=== PATIENT | male | born 1960 | race Hispanic/Latino ===

== ENCOUNTER 2016-11-01 07:48 | Emergency (ER) | payer MEDICARE, MEDICAID ==
[~2016-11-01] VITALS: Ht 152.4 cm; Wt 75.0 kg
[~2016-11-01 07:48] MED LIST: BACTRIM DS1 TAB PO; CIPROFLOXACN500 MG PO; DOXYCYCL HYC100 MG PO; LORTAB 7.5 OR; LORTAB 7.5 PO; NO; NO HOME MEDS; PREVACID30 M2 PO; THIAMINE HCL100 MG OR; ULTRAM50 M1 PO; ULTRAM50 MG OR; ZYPREXA OR; [UNRECOGNIZED DRUG - OTHER] EX
[2016-11-01 09:05] LABS: HEMATOCRIT 39.4 % (39.0-50.0); HEMOGLOBIN 13.4 g/dl (14.0-18.0); MEAN CELL VOLUME 100.3 fL CALC (80.0-100.0); MEAN CORPUSCULAR HGB 34.1 pG CALC (26.0-32.0); NEUT# 9.62 thou/uL (1.82-7.42); RED BLOOD COUNT 3.93 mill/uL (4.70-6.10); RED CELL DISTRI WIDTH 13.2 % (11.5-15.5)
[2016-11-01 09:32] LABS: ALBUMIN 3.6 g/dL (3.2-5.0); ALKALINE PHOSPHATASE 77 u/l (38-126); ANION GAP 16 (6-22 (CALC)); BUN 10 mg/dL (9-20); BUN/CREATININE RATIO 12 (12-20 (CALC)); CALCIUM 8.6 mg/dL (8.4-10.2); CARBON DIOXIDE 21 mmol/l (22-30); CHLORIDE 113 mmol/l (95-108); CREATININE 0.9 mg/dL (0.7-1.3); GFR > 60 ML/MIN (>=60 (CALC)); GFR FOR AFR.AMER. > 60 ML/MIN (>=60 (CALC)); GLUCOSE 85 mg/dL (75-110); POTASSIUM 3.7 mmol/l (3.5-5.1); SGOT/AST 208 u/l (17-59); SGPT/ALT 141 u/l (21-72); SODIUM 146 mmol/l (137-146); TOTAL PROTEIN 7.2 g/dL (6.3-8.2)
[2016-11-01 11:41] LABS: ETHYL ALCOHOL 374 mg/dl (0-30)
[2016-11-01 12:12] LABS: BARBITURATES NEGATIVE (NEGATIVE); COCAINE NEGATIVE (NEGATIVE); METHADONE NEGATIVE (NEGATIVE); OXCYCODONE NEGATIVE (NEGATIVE); TETRAHYDROCANNABIONOL NEGATIVE (NEGATIVE); TRICYLIC ANTIDEPRESSANTS NEGATIVE (NEGATIVE)
[2016-11-01 18:45] VITALS: BP 110/60
== END 2016-11-01 15:00 ==
LOC: ED 07:48
PROVIDERS: Emergency Medicine
PROC: 0HQFXZZ Repair Right Hand Skin, External Approach (ICD-10-PCS; principal; 2016-11-01)
DX: S06.0X9A Concussion with loss of consciousness of unspecified duration, initial encounter (principal); S61.411A Laceration without foreign body of right hand, initial encounter; S00.83XA Contusion of other part of head, initial encounter; S20.212A Contusion of left front wall of thorax, initial encounter; S30.1XXA Contusion of abdominal wall, initial encounter; S00.03XA Contusion of scalp, initial encounter; F31.9 Bipolar disorder, unspecified; F20.9 Schizophrenia, unspecified; B19.20 Unspecified viral hepatitis C without hepatic coma; J44.9 Chronic obstructive pulmonary disease, unspecified; F17.210 Nicotine dependence, cigarettes, uncomplicated; Y09 Assault by unspecified means; Y92.410 Unspecified street and highway as the place of occurrence of the external cause
CPT/HCPCS: J2060; Q9967

== ENCOUNTER 2017-11-08 21:05 | Emergency (ER) | payer MEDICARE, MEDICAID ==
[~2017-11-08] VITALS: Ht 177.8 cm; Wt 77.3 kg
[2017-11-08] MEDS ORDERED: BACTRIM DS1 TAB PO (22:12)
[2017-11-08 22:20] VITALS: BP 111/66
== END 2017-11-08 22:25 | disposition home or self-care (01) ==
LOC: ED 21:05
PROC: 0HQNXZZ Repair Left Foot Skin, External Approach (ICD-10-PCS; principal; 2017-11-08)
DX: S91.112A Laceration without foreign body of left great toe without damage to nail, initial encounter (principal); S81.012A Laceration without foreign body, left knee, initial encounter; W20.8XXA Other cause of strike by thrown, projected or falling object, initial encounter; Y92.009 Unspecified place in unspecified non-institutional (private) residence as the place of occurrence of the external cause

== ENCOUNTER 2018-04-25 20:17 | Emergency (ER) | payer MEDICARE, MEDICAID ==
[~2018-04-25] VITALS: Ht 177.8 cm; Wt 81.8 kg
[2018-04-25 21:33] LABS: IMMATURE GRANULOCYTES 0.3 % (0.0-5.0); MEAN CELL VOLUME 101.2 fL CALC (80.0-100.0); MEAN CORPUSCULAR HGB 34.4 pG CALC (26.0-32.0); NEUT# 4.35 thou/uL (1.82-7.42); RED BLOOD COUNT 5.12 mill/uL (4.70-6.10); RED CELL DISTRI WIDTH 13.2 % (11.5-15.5)
[2018-04-25 21:34] LABS: URINE BLOOD DIPSTICK LARGE (NEGATIVE); URINE GLUCOSE - DIPSTICK NEGATIVE (NEGATIVE); URINE KETONE NEGATIVE (NEGATIVE); URINE LEUK ESTERASE NEGATIVE (NEGATIVE); URINE NITRITE - DIPSTICK NEGATIVE (Negative); URINE PH 5.5 (4.5-8.0); URINE PROTEIN - DIPSTICK TRACE mg/dL (NEG-TRACE); URINE SPECIFIC GRAVITY 1.025
[2018-04-25 21:35] LABS: URINE COLOR AMBER
[2018-04-25 21:36] LABS: URINE BILIRUBIN - DIPSTICK NEGATIVE (NEGATIVE)
[2018-04-25 21:38] LABS: BARBITURATES NEGATIVE (NEGATIVE); COCAINE NEGATIVE (NEGATIVE); METHADONE NEGATIVE (NEGATIVE); OXCYCODONE NEGATIVE (NEGATIVE); TETRAHYDROCANNABIONOL NEGATIVE (NEGATIVE); TRICYLIC ANTIDEPRESSANTS NEGATIVE (NEGATIVE)
[2018-04-25 21:44] LABS: ALKALINE PHOSPHATASE 110 u/l (38-126); ANION GAP 15 (6-22 (CALC)); BILIRUBIN, TOTAL 1.5 mg/dL (0.0-1.4); BUN 13 mg/dL (9-20); BUN/CREATININE RATIO 21 (12-20 (CALC)); CARBON DIOXIDE 23 mmol/l (22-30); CHLORIDE 114 mmol/l (95-108); CREATININE 0.6 mg/dL (0.7-1.3); GFR > 60 ML/MIN (>=60 (CALC)); GFR FOR AFR.AMER. > 60 ML/MIN (>=60 (CALC)); POTASSIUM 3.9 mmol/l (3.5-5.1); SGOT/AST 331 u/l (17-59); SODIUM 148 mmol/l (137-146)
[2018-04-25 21:46] LABS: URINE AMORPH SEDIMENT MANY hpf (NONE-FER); URINE RBC 50-100 RBC/hpf (0-5)
[2018-04-25 21:48] LABS: HEMATOCRIT 51.8 % (39.0-50.0); HEMOGLOBIN 17.6 g/dl (14.0-18.0)
[2018-04-26 00:49] LABS: INTERNATIONAL NORMALIZED RATIO 1.1 RATIO (0.7-1.3); PROTHROMBIN TIME 11.9 SECONDS (9.0-12.5)
[2018-04-26 04:10] VITALS: BP 101/69
== END 2018-04-26 04:10 ==
LOC: ED 20:17
PROVIDERS: Emergency Medicine
DX: R44.0 Auditory hallucinations (principal); F10.10 Alcohol abuse, uncomplicated; K74.60 Unspecified cirrhosis of liver; F31.9 Bipolar disorder, unspecified; F20.0 Paranoid schizophrenia; B19.20 Unspecified viral hepatitis C without hepatic coma; J44.9 Chronic obstructive pulmonary disease, unspecified; F17.210 Nicotine dependence, cigarettes, uncomplicated; Z59.0 Homelessness
CPT/HCPCS: Q9967

== ENCOUNTER 2019-10-15 10:11 | Emergency (ER) | payer MEDICARE, MEDICAID ==
[2019-10-15 11:40] VITALS: BP 141/71
[2019-10-15 12:15] LABS: INTERNATIONAL NORMALIZED RATIO 1.2 RATIO (0.7-1.3); PROTHROMBIN TIME 12.5 SECONDS (9.0-12.5)
[2019-10-15 12:21] LABS: IMMATURE GRANULOCYTES 0.6 % (0.0-5.0); MEAN CELL VOLUME 98.8 fL CALC (80.0-100.0); MEAN CORPUSCULAR HGB 34.2 pG CALC (26.0-32.0); MEAN CORPUSCULAR HGB CONC 34.6 g/dL CAL (32.0-36.0); NEUT# 2.83 thou/uL (1.82-7.42); RED BLOOD COUNT 4.01 mill/uL (4.70-6.10); RED CELL DISTRI WIDTH 14.7 % (11.5-15.5)
[2019-10-15 13:03] LABS: ALBUMIN 3.2 g/dL (3.2-5.0); ALKALINE PHOSPHATASE 175 u/l (38-126); ANION GAP 10 (6-22 (CALC)); BILIRUBIN, TOTAL 3.1 mg/dL (0.0-1.4); BUN 8 mg/dL (8-23); BUN/CREATININE RATIO 15 (12-20 (CALC)); CARBON DIOXIDE 24 mmol/l (22-30); CHLORIDE 109 mmol/l (95-108); CREATININE 0.5 mg/dL (0.7-1.3); GFR > 60 ML/MIN (>=60 (CALC)); GFR FOR AFR.AMER. > 60 ML/MIN (>=60 (CALC)); LIPASE 312 u/l (23-300); SGOT/AST 167 u/l (19-48); SODIUM 140 mmol/l (137-146); TOTAL PROTEIN 7.6 g/dL (6.3-8.2)
[2019-10-15 13:13] LABS: HEMATOCRIT 39.6 % (39.0-50.0); HEMOGLOBIN 13.7 g/dl (14.0-18.0)
== END 2019-10-15 11:40 | disposition left against medical advice (07) ==
LOC: ED 10:11
PROVIDERS: Family Medicine
DX: R07.9 Chest pain, unspecified (principal); J44.9 Chronic obstructive pulmonary disease, unspecified; F17.210 Nicotine dependence, cigarettes, uncomplicated; Z91.19 Patient's noncompliance with other medical treatment and regimen; Z20.828 Contact with and (suspected) exposure to other viral communicable diseases; R06.02 Shortness of breath

== ENCOUNTER 2020-07-26 14:43 | Emergency (ER) | payer MEDICARE, MEDICAID ==
[~2020-07-26] VITALS: Ht 177.8 cm; Wt 91.0 kg
[2020-07-26 15:29] LABS: HEMOGLOBIN 13.5 g/dl (14.0-18.0); IMMATURE GRANULOCYTES 0.4 % (0.0-5.0); MEAN CORPUSCULAR HGB 32.9 pG CALC (26.0-32.0); MEAN CORPUSCULAR HGB CONC 32.9 g/dL CAL (32.0-36.0); NEUT# 3.3 thou/uL (1.82-7.42); RED BLOOD COUNT 4.1 mill/uL (4.70-6.10); RED CELL DISTRI WIDTH 14.9 % (11.5-15.5)
[2020-07-26 15:30] LABS: GFR > 60 ML/MIN (>=60 (CALC)); GFR FOR AFR.AMER. > 60 ML/MIN (>=60 (CALC))
[2020-07-26 15:46] LABS: INTERNATIONAL NORMALIZED RATIO 1.4 RATIO (0.7-1.3); PROTHROMBIN TIME 13.8 SECONDS (9.0-12.5)
[2020-07-26 15:48] LABS: ALBUMIN 3.3 g/dL (3.2-5.0); ALKALINE PHOSPHATASE 121 u/l (38-126); ANION GAP 10 (6-22 (CALC)); BUN 10 mg/dL (8-23); BUN/CREATININE RATIO 17 (12-20 (CALC)); CARBON DIOXIDE 23 mmol/l (22-30); CHLORIDE 107 mmol/l (95-108); CREATININE 0.6 mg/dL (0.7-1.3); ETHYL ALCOHOL 35 mg/dl (0-30); GFR > 60 ML/MIN (>=60 (CALC)); GFR FOR AFR.AMER. > 60 ML/MIN (>=60 (CALC)); POTASSIUM 3.4 mmol/l (3.5-5.1); SGOT/AST 65 u/l (19-48); SODIUM 137 mmol/l (137-146); TOTAL PROTEIN 7.7 g/dL (6.3-8.2)
[2020-07-26 15:55] LABS: BILIRUBIN, TOTAL 4.7 mg/dL (0.0-1.4)
[2020-07-26 16:43] LABS: URINE BLOOD DIPSTICK LARGE (NEGATIVE); URINE GLUCOSE - DIPSTICK NEGATIVE (NEGATIVE); URINE KETONE TRACE mg/dL (NEGATIVE); URINE NITRITE - DIPSTICK NEGATIVE (Negative); URINE PH 6.5 (4.5-8.0); URINE PROTEIN - DIPSTICK NEGATIVE (NEG-TRACE); URINE SPECIFIC GRAVITY 1.025; URINE UROBILINOGEN - DIPSTICK >=8.0 E.U./dL (0.2)
[2020-07-26 16:44] LABS: URINE BILIRUBIN - DIPSTICK SMALL (NEGATIVE); URINE COLOR AMBER; URINE LEUK ESTERASE SMALL (NEGATIVE)
[2020-07-26 19:31] VITALS: BP 155/74
== END 2020-07-26 19:29 | disposition short-term general hospital (02) ==
LOC: ED 14:43
PROVIDERS: Family Medicine
DX: K70.40 Alcoholic hepatic failure without coma (principal); F10.20 Alcohol dependence, uncomplicated; K70.30 Alcoholic cirrhosis of liver without ascites; I85.10 Secondary esophageal varices without bleeding; J44.9 Chronic obstructive pulmonary disease, unspecified; F31.9 Bipolar disorder, unspecified; F17.200 Nicotine dependence, unspecified, uncomplicated; B19.20 Unspecified viral hepatitis C without hepatic coma; Z20.822 Contact with and (suspected) exposure to COVID-19
CPT/HCPCS: Q9967

== ENCOUNTER 2021-06-02 12:25 | Emergency (ER) | payer MEDICARE, MEDICAID ==
[~2021-06-02] VITALS: Ht 177.8 cm; Wt 80.0 kg
[2021-06-02 13:30] LABS: HEMATOCRIT 38.8 % (39.0-50.0); HEMOGLOBIN 12.3 g/dl (14.0-18.0); IMMATURE GRANULOCYTES 0.5 % (0.0-5.0); MEAN CELL VOLUME 97.7 fL CALC (80.0-100.0); MEAN CORPUSCULAR HGB CONC 31.7 g/dL CAL (32.0-36.0); NEUT# 2.53 thou/uL (1.82-7.42); RED BLOOD COUNT 3.97 mill/uL (4.70-6.10); RED CELL DISTRI WIDTH 18.5 % (11.5-15.5)
[2021-06-02 13:45] LABS: INTERNATIONAL NORMALIZED RATIO 1.3 RATIO (0.7-1.3); PROTHROMBIN TIME 13.8 SECONDS (9.0-12.5)
[2021-06-02 13:46] LABS: ALBUMIN 2.7 g/dL (3.2-5.0); ALKALINE PHOSPHATASE 142 u/l (38-126); BILIRUBIN, TOTAL 3.1 mg/dL (0.0-1.4); BUN 22 mg/dL (8-23); BUN/CREATININE RATIO 25 (12-20 (CALC)); CARBON DIOXIDE 25 mmol/l (22-30); CHLORIDE 98 mmol/l (95-108); CREATININE 0.9 mg/dL (0.7-1.3); GFR > 60 ML/MIN (>=60 (CALC)); GFR FOR AFR.AMER. > 60 ML/MIN (>=60 (CALC)); SGOT/AST 74 u/l (19-48); TOTAL PROTEIN 6.7 g/dL (6.3-8.2)
[2021-06-02 13:49] LABS: ANION GAP 11 (6-22 (CALC)); POTASSIUM 4.5 mmol/l (3.5-5.1); SODIUM 129 mmol/l (137-146)
[2021-06-02 15:14] LABS: URINE BILIRUBIN - DIPSTICK NEGATIVE (NEGATIVE); URINE BLOOD DIPSTICK LARGE (NEGATIVE); URINE GLUCOSE - DIPSTICK NEGATIVE (NEGATIVE); URINE KETONE NEGATIVE (NEGATIVE); URINE PROTEIN - DIPSTICK 30 mg/dL (NEG-TRACE); URINE SPECIFIC GRAVITY 1.015; URINE UROBILINOGEN - DIPSTICK 0.2 E.U./dL (0.2)
[2021-06-02 15:18] LABS: URINE COLOR AMBER
[2021-06-02 15:19] LABS: URINE LEUK ESTERASE MODERATE (NEGATIVE); URINE NITRITE - DIPSTICK NEGATIVE (Negative)
[2021-06-02 15:21] LABS: URINE RBC TNTC RBC/hpf (0-5)
[2021-06-02] MEDS ORDERED: LEVAQUIN750 M1 PO ×2 (16:27→16:47)
[2021-06-02 16:37] VITALS: BP 134/76
== END 2021-06-02 16:54 | disposition home or self-care (01) ==
LOC: ED 12:25
PROVIDERS: Family Medicine
PROC: 0W9G3ZZ Drainage of Peritoneal Cavity, Percutaneous Approach (ICD-10-PCS; principal; 2021-06-02)
PROC: BW40ZZZ Ultrasonography of Abdomen (ICD-10-PCS; 2021-06-02)
DX: K70.31 Alcoholic cirrhosis of liver with ascites (principal); J18.9 Pneumonia, unspecified organism; B19.20 Unspecified viral hepatitis C without hepatic coma; F10.10 Alcohol abuse, uncomplicated; I10 Essential (primary) hypertension; J44.9 Chronic obstructive pulmonary disease, unspecified; F31.9 Bipolar disorder, unspecified; F17.200 Nicotine dependence, unspecified, uncomplicated; Z20.822 Contact with and (suspected) exposure to COVID-19
CPT/HCPCS: Q9967

== ENCOUNTER 2021-06-11 12:44 | Inpatient (IN) | payer MEDICARE, MEDICAID ==
[~2021-06-11] VITALS: Ht 177.8 cm; Wt 91.0 kg
[~2021-06-11 12:44] MED LIST changes: +LEVAQUIN750 M1 PO
--- NOTE | 2021-06-11 13:11 | NUR ---
PATIENT ESCORTED TO ROOM VIA WHEELCHAIR IN NO ACUTE DISTRESS.
[2021-06-11 13:40] LABS: HEMOGLOBIN 12.2 g/dl (14.0-18.0); MEAN CORPUSCULAR HGB 30.5 pG CALC (26.0-32.0); MEAN CORPUSCULAR HGB CONC 32.1 g/dL CAL (32.0-36.0); NEUT# 16.75 thou/uL (1.82-7.42)
[2021-06-11 14:02] LABS: ALBUMIN 2.5 g/dL (3.2-5.0); ALKALINE PHOSPHATASE 124 u/l (38-126); ANION GAP 9 (6-22 (CALC)); BILIRUBIN, TOTAL 3.9 mg/dL (0.0-1.4); BUN 20 mg/dL (8-23); BUN/CREATININE RATIO 24 (12-20 (CALC)); CARBON DIOXIDE 24 mmol/l (22-30); CHLORIDE 95 mmol/l (95-108); CREATININE 0.8 mg/dL (0.7-1.3); GFR > 60 ML/MIN (>=60 (CALC)); GFR FOR AFR.AMER. > 60 ML/MIN (>=60 (CALC)); POTASSIUM 5.1 mmol/l (3.5-5.1); SGOT/AST 68 u/l (19-48); SODIUM 123 mmol/l (137-146); TOTAL PROTEIN 6.3 g/dL (6.3-8.2)
[2021-06-11 14:04] LABS: ACT PARTIAL THROMBO TIME 34.7 SECONDS (20.0-32.5); INTERNATIONAL NORMALIZED RATIO 1.3 RATIO (0.7-1.3); PROTHROMBIN TIME 13.3 SECONDS (9.0-12.5)
[2021-06-11 16:20] LABS: URINE BILIRUBIN - DIPSTICK NEGATIVE (NEGATIVE); URINE BLOOD DIPSTICK LARGE (NEGATIVE); URINE GLUCOSE - DIPSTICK NEGATIVE (NEGATIVE); URINE KETONE NEGATIVE (NEGATIVE); URINE NITRITE - DIPSTICK NEGATIVE (Negative); URINE PROTEIN - DIPSTICK TRACE mg/dL (NEG-TRACE); URINE UROBILINOGEN - DIPSTICK 0.2 E.U./dL (0.2)
[2021-06-11 16:21] LABS: URINE COLOR RED; URINE LEUK ESTERASE MODERATE (NEGATIVE); URINE RBC >100 RBC/hpf (0-5); URINE SQUAMOUS EPITHELIAL CELL FEW EPI/hpf (0-FEW)
--- NOTE | 2021-06-11 18:14 | NUR ---
CALLED REPORT TO FLOOR. LEFT MESSAGE WITH SIGNIFICANT OTHER. NO ANSWER ON MACHINE.
--- NOTE | 2021-06-11 18:27 | NUR ---
PATIENT CAME FROM ER VIA STRETCHER BY NURSE. PATIENT AMBULATED TO THE BED. DINNER PROVIDED AND PO FLUIDS. PATIENT DENIES ANY OTHER NEEDS AT THIS TIME. CALL LIGHT IN REACH.
--- NOTE | 2021-06-11 18:35 | NUR ---
PATIENT TAKEN TO ROOM ON MS.
--- NOTE | 2021-06-11 20:00 | NUR ---
PATIENT RESTING IN BED AT THIS TIME-AWAKE ALERT AND ORIENTEDX3. COLOR IS JAUNDICE. PATIENT ADMITTED FOR LEUKOCYTOSIS, PNEUMONIA, ASCITES WITH HX OF CIRRHOSIS AND LIVER CA. PATIENT HAD PARACENTESIS DONE TODAY AND HAD 4.5L OF FLUID REMOVED. PATIENT STATES THAT HIS BREATHING IS MUCH BETTER. O2 SATS IS 92-93% ON RA. TELE MONITOR IN PLACE AND READING SR-82. LUNGS ARE DIMINISHED THROUGHOUT. ABD REMAINS DISTENDED. BS+. STATES LAST BM WAS TODAY BEFORE COMING TO THE ER. PATIENT WITH HEATURIA VOIDING IN URINAL-STATES THAT IT HAS BEEN WORSE. PEDAL PULSES PALPABLE. PATIENT WITH IV SITE TO RAC INTACT-SITE IS HEALTHY WITH GOOD BLOOD RETURN. LEVAQUIN INFUSING ORDERED., MEDICATED WITH TYLENOL FOR GENERALIZED CRAMPING SHAILESH TO HIS HANDS. ORIENTED TO ROOM AND SURROUNDINGS. INSTRUCTED ON USE OF NURSE CALL LIGHT SYSTEM AND TV REMOTE. SAFETY PRECAUTIONS REINFORCED. CALL LIGHT IN REACH. WILL CONT TO MONITOR.
--- NOTE | 2021-06-11 22:00 | NUR ---
RESTING IN BED-ALBUMIN IS FINISHED. STATES THAT THE CRAMPING IS BETTER. EATING HS SNACK. CALL LIGHT IN REACH. WILL CONT TO MONITOR.
[2021-06-12] VITALS: BP 101/58
--- NOTE | 2021-06-12 01:54 | NUR ---
PATIENT RESTING IN BED AT THIS TIME WITH EYES CLOSED. PATIENT WITH NOISEY BREATHING WHEN SLEEPING, VOIDED 100CC OF REDDISH LORENE URINE IN URINAL. VANCO INFUSING VIA RAC SITE- REMAINS HEALTHY WITH GOOD BLOOD RETURN. TELE MONITOR REMAINS IN PLACE. CALL LIGHT IN REACH. WILL CONT TO MONITOR.
[2021-06-12 04:00] VITALS: BP 99/54
--- NOTE | 2021-06-12 04:24 | NUR ---
RESTING IN BED AT THIS TIME WITH EYES CLOSED. TELE MONITOR IN PLACE. LAST READING WAS SR-82. CALL LIGHT IN REACH. WILL CONT TO MONITOR.
[2021-06-12 06:09] LABS: HEMOGLOBIN 10.6 g/dl (14.0-18.0); IMMATURE GRANULOCYTES 0.8 % (0.0-5.0); MEAN CELL VOLUME 95.9 fL CALC (80.0-100.0); MEAN CORPUSCULAR HGB 30.8 pG CALC (26.0-32.0); MEAN CORPUSCULAR HGB CONC 32.1 g/dL CAL (32.0-36.0); NEUT# 8.59 thou/uL (1.82-7.42); RED BLOOD COUNT 3.44 mill/uL (4.70-6.10)
[2021-06-12 06:28] LABS: ALBUMIN 2.2 g/dL (3.2-5.0); ALKALINE PHOSPHATASE 87 u/l (38-126); ANION GAP 7 (6-22 (CALC)); BILIRUBIN, TOTAL 2.8 mg/dL (0.0-1.4); BUN 20 mg/dL (8-23); BUN/CREATININE RATIO 26 (12-20 (CALC)); CARBON DIOXIDE 25 mmol/l (22-30); CHLORIDE 96 mmol/l (95-108); CREATININE 0.8 mg/dL (0.7-1.3); GFR > 60 ML/MIN (>=60 (CALC)); GFR FOR AFR.AMER. > 60 ML/MIN (>=60 (CALC)); MAGNESIUM 1.9 mg/dL (1.6-2.3); SGOT/AST 47 u/l (19-48); SODIUM 123 mmol/l (137-146); TOTAL PROTEIN 5.3 g/dL (6.3-8.2)
[2021-06-12 06:31] LABS: INTERNATIONAL NORMALIZED RATIO 1.5 RATIO (0.7-1.3); PROTHROMBIN TIME 15.5 SECONDS (9.0-12.5)
[2021-06-12 06:33] LABS: POTASSIUM 5.3 mmol/l (3.5-5.1)
[2021-06-12 07:21] VITALS: BP 108/57
--- NOTE | 2021-06-12 08:30 | NUR ---
PT IN BED. UNLABORED RESPIRATIONS; DIMINISHED LUNG SOUNDS UPPER AND LOWER LOBES. ABDOMEN DISTENDED AND FIRM; ACTIVE BOWEL SOUNDS X4 QUADRANTS. NO DISTRESS NOTED. PT DENIES PAIN AT THE MOMENT. IV HEALTHY AND PATENT. CALL LIGHT WITHIN REACH.
[2021-06-12] MEDS ORDERED: PROSCAR5 MG PO (10:26)
[2021-06-12] MEDS ORDERED: TAMSULOSIN HCL0.4 MG PO (10:27)
[2021-06-12] MEDS ORDERED: ONDANSETRON4 MG PO (10:28)
[2021-06-12] MEDS ORDERED: OMEPRAZOLE20 M3 PO (10:28)
[2021-06-12] MEDS ORDERED: SPIRONOLACT50 MG PO (10:29)
[2021-06-12] MEDS ORDERED: LASIX 20 MG TAB20 MG PO (10:29)
[2021-06-12] MEDS ORDERED: XIFAXAN550 MG PO (10:30)
[2021-06-12] MEDS ORDERED: TRAZODONE50 MG PO (10:30)
[2021-06-12] MEDS ORDERED: GENERLAC10 GM/15 M PO (10:31)
[2021-06-12] MEDS ORDERED: TRAMADOL HYDROC50 M1 PO (10:32)
[2021-06-12 10:36] VITALS: BP 102/58
--- NOTE | 2021-06-12 10:38 | NUR ---
S: ELIDIA BEAR is a 60 M who presents with pneumonia. He has a history of hepatitis C, COPD, paranoid schizophrenia, bipolar disorder, liver cancer, and ascites. All medications in patient's chart were reviewed. O: VS: BP 108/57 mmHg, P 89 BPM, RR 18 BPM, T 98.1 F W 90.7 kg, HT 70 in, Scr= 0.8, CrCl= 122.8 ml/min A: Blood culture is pending. Urine culture is pending. P: Patient is on Levaquin 750 mg IV Q24H. Vancomycin ordered for pharmacy to dose. Start Vancomycin 1 gm IV Q8H. Vancomycin trough is drawn before the 4th dose on 06/12 at 1630. Vancomycin goal trough is between 15-20 mcg/ml. Pharmacy will follow and or advise on antibiotics use as needed.
--- NOTE | 2021-06-12 12:30 | NUR ---
DR GUZMAN AT BEDSIDE DISCUSSING POC
--- NOTE | 2021-06-12 12:50 | NUR ---
PT IN BED SLEEPIG; AWAKEN TO GIVE MEDS. NO DISTRESS NOTED. PT DENIES PAIN AT THE MOMENT. PT REQUESTED JUICE. CALL LIGHT WITHIN REACH.
[2021-06-12 15:25] VITALS: BP 105/52
--- NOTE | 2021-06-12 16:00 | NUR ---
PT IN BED WATCHING TV. PT HELPED TO BATHROOM. PT DENIES PAIN AT THE MOMENT. NO DISTRESS NOTED. PT REQUESTED CRANBERRY JUICE. CALL LIGHT WITHIN REACH.
[2021-06-12 19:00] VITALS: BP 108/56
--- NOTE | 2021-06-12 20:00 | NUR ---
PATIENT SITTING UP IN BED WATCHING TV-AWAKE ALERT AND ORIENTEDX3. PATIENT WITH C/O CRAMPING PAIN-MEDICATED WITH ULTRAM 50MG PO FOR PAIN. IVF TO RAC INTACT-REMAINS HEALTHY AT THIS TIME. TELE MONITOR IN PLACE WITH LAST READING SR-89. ABD REMAINS DISTENDED WITH ACTIVE BS. APPETITE IS GOOD. LAST BM WAS 06/10. CONT TO VOID BLOOD TINGED LORENE URINE IN URINAL. SAFETY PRECAUTIONS REINFORCED. CALL LIGHT IN REACH. WILL CONT TO MONITOR.
[2021-06-13] VITALS: BP 87/43
--- NOTE | 2021-06-13 00:28 | NUR ---
PATIENT C/O ABD PAIN-ASSIST TO THE BR AND STATES THAT HE DID HAVE BM. STATES THAT HE IS NOW FEELING BETTER. MIN ASSIST BACK TO BED. TELE MONITOR IN PLACE. IV SITE TO RAC REMAINS INTACT. SAFETY PRECAUTIONS REINFORCED. CALL LIGHT IN REACH. WILL CONT TO MONITOR.
[2021-06-13 04:00] VITALS: BP 100/54
--- NOTE | 2021-06-13 04:11 | NUR ---
PATIENT RESTING IN BED WITH EYES CLOSED AND RESPS EVEN AND UNLABORED.CONT TO VOID IN SMALL AMTS BLOODY LORENE URINE IN URINAL. TELE MONITOR IN PLACE. SALINE LOCK TO RAC SITE INTACT AND HEALTHY AT THIS TIME. CALL LIGHT IN REACH. WILL CONT TO MONITOR.
[2021-06-13 06:08] LABS: HEMATOCRIT 33.9 % (39.0-50.0); IMMATURE GRANULOCYTES 1.3 % (0.0-5.0); MEAN CELL VOLUME 96.6 fL CALC (80.0-100.0); MEAN CORPUSCULAR HGB 31.3 pG CALC (26.0-32.0); MEAN CORPUSCULAR HGB CONC 32.4 g/dL CAL (32.0-36.0); NEUT# 7.03 thou/uL (1.82-7.42); RED BLOOD COUNT 3.51 mill/uL (4.70-6.10); RED CELL DISTRI WIDTH 18.2 % (11.5-15.5)
[2021-06-13 06:27] LABS: ALBUMIN 2.3 g/dL (3.2-5.0); ALKALINE PHOSPHATASE 103 u/l (38-126); ANION GAP 9 (6-22 (CALC)); BILIRUBIN, TOTAL 2.2 mg/dL (0.0-1.4); BUN 18 mg/dL (8-23); BUN/CREATININE RATIO 20 (12-20 (CALC)); CARBON DIOXIDE 25 mmol/l (22-30); CHLORIDE 95 mmol/l (95-108); CREATININE 0.9 mg/dL (0.7-1.3); GFR > 60 ML/MIN (>=60 (CALC)); GFR FOR AFR.AMER. > 60 ML/MIN (>=60 (CALC)); POTASSIUM 5.1 mmol/l (3.5-5.1); SGOT/AST 47 u/l (19-48); SODIUM 124 mmol/l (137-146); TOTAL PROTEIN 5.6 g/dL (6.3-8.2)
[2021-06-13 07:36] VITALS: BP 109/57
--- NOTE | 2021-06-13 07:45 | NUR ---
PT IN BED WATCHING TV. DIMINISHED LUNG SOUNDS UPON AUSCULTATION. DISTENDED, FIRM ABDOMEN; ACTIVE BOWEL SOUNDS X4 QUADRATS. NO DISTRESS NOTED. PT DENIES PAIN AT THE MOMENT. PT HELPED TO RESTROOM. IV SITE HEALTHY AND PATENT. CALL LIGHT WITHIN REACH.
--- NOTE | 2021-06-13 07:54 | NUR ---
S: ELIDIA BEAR is a 60 M who presents with pneumonia. All medications in patient's chart were reviewed. O: VS: BP 109/57 mmHg, P 88 bpm, RR 19 bpm, T 98.3 F W 90.7kg, HT 70in, Scr 0.9 mg/dl, CrCl 109.2 ml/min Vancomycin trough 06/12/21 @ 1630 = 15 mcg/ml A: Blood culture is pending Urine culture shows < 20,000 CFU/ml of mixed gram positive cassius. P: Patient is on Levaquin 750mg IV q24h. Vancomycin ordered for pharmacy to dose. Continue vancomycin 1g IV Q8H. Vancomycin trough is drawn before the 4th dose on 06/13/21 @ 1630. Vancomycin goal trough is between 15-20 mcg/ml. Pharmacy will follow and or advise on antibiotics use as needed.
[2021-06-13 11:27] VITALS: BP 105/59
--- NOTE | 2021-06-13 13:15 | NUR ---
PT SITTING IN BED. NO DISTRESS NOTED. PT DENIES PAIN AT THE MOMENT. IV SITE HEALTHY AND PATENT. CALL LIGHT WITHIN REACH.
[2021-06-13 15:51] VITALS: BP 123/63
--- NOTE | 2021-06-13 16:00 | NUR ---
PT SITTING IN BED. NO DISTRESS NOTED. PT REQUESTED PRUNE JUICE TO HELP WITH HIS BOWELS. PT DENIES PAIN AT THE MOMENT. SAFETY PRECAUTIONS IN PLACE. CALL LIGHT WITHIN REACH.
--- NOTE | 2021-06-13 19:30 | NUR ---
PT IN BED WATCHING TV. NO DISTRESS NOTED. NEW IV IN PLACE #20G ON THE LEFT AC; IV HEALTH AND PATENT. REMOVED PREVIOUS IV #20 ON RIGHT AC; CATHETER INTACT UPON REMOVAL; PT TOLERATED WELL. CALL LIGHT WITHIN REACH.
[2021-06-13 20:08] VITALS: BP 109/59
--- NOTE | 2021-06-13 21:50 | NUR ---
PATIENT RESTING IN BED WATCHING TV-PATIENT STATES THAT HE ONLY HAD SMALL BM TODAY.ABD REMAINS DISTENDED WITH BS+. ALREADY HAD SOME PRUNE JUICE EARLIER. TAKING LACTULOSE ORDERED. MEDICATED WITH ULTRAM 50MG PO FOR ABD PAIN. CONT TO VOID BLOOD TINGED LORENE URINE IN URINAL IN SMALL AMTS. SALINE LOCK TO LAC INTACT AND HEALTHY WITH GOOD BLOOD RETURN. SAFETY PRECAUTIONS REINFORCED. CALL LIGHT IN REACH. WILL CONT TO MONITOR.
[2021-06-14 00:34] VITALS: BP 84/43
--- NOTE | 2021-06-14 01:14 | NUR ---
PATIENT RESTING ON RIGHT SIDE WITH EYES CLOSED. RESPS ARE EVEN AND UNLAB ORED. MASOOD BROUSSARD VIA LAC SITE-REMAINS HEALTHY WITH GOOD BLOOD RETURN. TELE MONITOR IN PLACE. CALL LIGHT IN REACH. WILL CONT TO MONITOR.
--- NOTE | 2021-06-14 04:09 | NUR ---
PATIENT CALLED AND MIN ASSIST TO THE BR FOR BM AND THEN BACK TO BED. PATIENT CONT TO VOID SMALL AMT OF BLOODY LORENE URINE IN URINAL. PATIENT STATES THAT HE DID HAVE BM. TELE MONITOR IN PLACE. SALINE LOCK TO LAC INTACT. CALL LIGHT IN REACH. WILL CONT TO MONITOR.
[2021-06-14 04:37] VITALS: BP 124/61
[2021-06-14 05:44] LABS: HEMATOCRIT 34.5 % (39.0-50.0); HEMOGLOBIN 11.1 g/dl (14.0-18.0); MEAN CELL VOLUME 95.3 fL CALC (80.0-100.0); MEAN CORPUSCULAR HGB 30.7 pG CALC (26.0-32.0); MEAN CORPUSCULAR HGB CONC 32.2 g/dL CAL (32.0-36.0); NEUT# 6.72 thou/uL (1.82-7.42); RED BLOOD COUNT 3.62 mill/uL (4.70-6.10); RED CELL DISTRI WIDTH 18.5 % (11.5-15.5)
[2021-06-14 05:56] LABS: INTERNATIONAL NORMALIZED RATIO 1.3 RATIO (0.7-1.3); PROTHROMBIN TIME 13.4 SECONDS (9.0-12.5)
[2021-06-14 06:13] LABS: ALBUMIN 2.3 g/dL (3.2-5.0); ALKALINE PHOSPHATASE 106 u/l (38-126); ANION GAP 10 (6-22 (CALC)); BILIRUBIN, TOTAL 2.2 mg/dL (0.0-1.4); BUN 17 mg/dL (8-23); BUN/CREATININE RATIO 24 (12-20 (CALC)); CARBON DIOXIDE 21 mmol/l (22-30); CHLORIDE 98 mmol/l (95-108); CREATININE 0.7 mg/dL (0.7-1.3); GFR > 60 ML/MIN (>=60 (CALC)); GFR FOR AFR.AMER. > 60 ML/MIN (>=60 (CALC)); POTASSIUM 4.8 mmol/l (3.5-5.1); SGOT/AST 53 u/l (19-48); SODIUM 124 mmol/l (137-146); TOTAL PROTEIN 5.7 g/dL (6.3-8.2)
[2021-06-14 07:42] VITALS: BP 100/57
--- NOTE | 2021-06-14 07:44 | NUR ---
Patient is screened fro rehab intervention and no needs are identified at this time
--- NOTE | 2021-06-14 08:44 | NUR ---
S: ELIDIA BEAR is a 60 M who presents with pneumonia. He has a history of hepatitis C, COPD, schizophernia, and cirrhosis with ascites. All medications in patient's chart were reviewed. O: VS: BP 100/57 mmHg, P 80 bpm, RR 19 bpm, T 98.0 F W 90.7 kg, HT 177.8 cm, Scr= 0.7 mg/dL, CrCl= 140.4 mL/min Vancomycin trough was 17 mcg/ml on 06/13/21 A: Preliminary blood culture shows no growth. Final urine culture shows mixed gram positive cassius due to probable skin contamination. P: Patient is on Levaquin 750 mg IV Q24H. Vancomycin ordered for pharmacy to dose. Continue Vancomycin 1 g IV Q8H. Vancomycin trough is to be redrawn on 06/14/21 at 1630. Vancomycin goal trough is between 15-20 mcg/ml. Pharmacy will follow and or advise on antibiotics use as needed.
--- NOTE | 2021-06-14 10:36 | NUR ---
DR SEGOVIA AND Miriam GONSALVES APRN AT BEDSIDE DISCUSSING POC
[2021-06-14 10:41] VITALS: BP 105/54
[2021-06-14] MEDS ORDERED: SENNA REGULAR8.6 MG PO (14:56)
[2021-06-14] MEDS ORDERED: LEVAQUIN750 M1 PO (14:56)
[2021-06-14 15:12] VITALS: BP 105/55
--- NOTE | 2021-06-14 17:00 | NUR ---
PT SITTING IN BED HAVING DINNER. NO DISTRESS NOTED. PT DENIES PAIN AT THE MOMENT. PT GETTING READY FOR DISCHARGE. TELEMETRY IN PLACED. CALL LIGHT WITHIN REACH.
--- NOTE | 2021-06-14 19:20 | NUR ---
Discharge instructions given. Patient verbalizes understanding of same. Discharged in stable condition via Wheelchair to Home with staff. All belongings sent with pt.
== END 2021-06-14 19:22 | disposition home health service (06) | DRG 433 ==
LOC: ED 12:44 → ED-I 16:25 → ED 16:43 → MS2 16:44
PROVIDERS: Nurse Practitioner; ADMIT Internal Medicine; ATTEND Internal Medicine
PROC: 0W9G3ZZ Drainage of Peritoneal Cavity, Percutaneous Approach (ICD-10-PCS; principal; 2021-06-11)
PROC: 3E0234Z Introduction of Serum, Toxoid and Vaccine into Muscle, Percutaneous Approach (ICD-10-PCS; 2021-06-12)
DX: K70.31 Alcoholic cirrhosis of liver with ascites (principal); E87.1 Hypo-osmolality and hyponatremia; K70.40 Alcoholic hepatic failure without coma; F10.10 Alcohol abuse, uncomplicated; D69.59 Other secondary thrombocytopenia; B19.20 Unspecified viral hepatitis C without hepatic coma; K59.00 Constipation, unspecified; R91.8 Other nonspecific abnormal finding of lung field; D72.829 Elevated white blood cell count, unspecified; J44.9 Chronic obstructive pulmonary disease, unspecified; F31.9 Bipolar disorder, unspecified; F15.10 Other stimulant abuse, uncomplicated; F17.200 Nicotine dependence, unspecified, uncomplicated; Z23 Encounter for immunization; Z20.822 Contact with and (suspected) exposure to COVID-19
CPT/HCPCS: G0378; P9047; Q9967

== ENCOUNTER 2021-07-26 13:19 | Emergency (ER) | payer MEDICARE, MEDICAID ==
[~2021-07-26] VITALS: Ht 177.8 cm; Wt 100.0 kg
[2021-07-26] VITALS (11 sets, daily range): BP systolic 118–136; BP diastolic 56–79
[~2021-07-26 13:19] MED LIST changes: +GENERLAC10 GM/15 M PO; +LASIX 20 MG TAB20 MG PO; +OMEPRAZOLE20 M3 PO; +ONDANSETRON4 MG PO; +PROSCAR5 MG PO; +SENNA REGULAR8.6 MG PO; +SPIRONOLACT50 MG PO; +TAMSULOSIN HCL0.4 MG PO; +TRAMADOL HYDROC50 M1 PO; +TRAZODONE50 MG PO; +XIFAXAN550 MG PO
[2021-07-26 13:56] LABS: IMMATURE GRANULOCYTES 0.6 % (0.0-5.0); MEAN CELL VOLUME 90.1 fL CALC (80.0-100.0); MEAN CORPUSCULAR HGB 28.8 pG CALC (26.0-32.0); MEAN CORPUSCULAR HGB CONC 31.9 g/dL CAL (32.0-36.0); NEUT# 6.4 thou/uL (1.82-7.42); RED BLOOD COUNT 3.13 mill/uL (4.70-6.10); RED CELL DISTRI WIDTH 18.7 % (11.5-15.5)
[2021-07-26 14:00] LABS: HEMATOCRIT 28.2 % (39.0-50.0)
[2021-07-26 14:11] LABS: ALBUMIN 2.5 g/dL (3.2-5.0); ALKALINE PHOSPHATASE 145 u/l (38-126); AMYLASE 95 u/l (30-110); ANION GAP 14 (6-22 (CALC)); BILIRUBIN, TOTAL 4.7 mg/dL (0.0-1.4); BUN 19 mg/dL (8-23); BUN/CREATININE RATIO 16 (12-20 (CALC)); CARBON DIOXIDE 20 mmol/l (22-30); CHLORIDE 97 mmol/l (95-108); CREATININE 1.2 mg/dL (0.7-1.3); ETHYL ALCOHOL 0 mg/dl (0-30); GFR > 60 ML/MIN (>=60 (CALC)); GFR FOR AFR.AMER. > 60 ML/MIN (>=60 (CALC)); LIPASE 152 u/l (23-300); POTASSIUM 4.3 mmol/l (3.5-5.1); SGOT/AST 87 u/l (19-48); SODIUM 127 mmol/l (137-146); TOTAL PROTEIN 6.6 g/dL (6.3-8.2)
[2021-07-26 14:25] LABS: ACT PARTIAL THROMBO TIME 33.8 SECONDS (20.0-32.5); INTERNATIONAL NORMALIZED RATIO 1.4 RATIO (0.7-1.3); PROTHROMBIN TIME 14.6 SECONDS (9.0-12.5)
[2021-07-26] MEDS ORDERED: XIFAXAN550 MG PO (14:50)
[2021-07-26] MEDS ORDERED: ALBUTEROL108 MCG/AC IH (14:54)
[2021-07-26 15:12] LABS: URINE BLOOD DIPSTICK LARGE (NEGATIVE); URINE GLUCOSE - DIPSTICK NEGATIVE (NEGATIVE); URINE KETONE NEGATIVE (NEGATIVE); URINE PROTEIN - DIPSTICK 30 mg/dL (NEG-TRACE); URINE UROBILINOGEN - DIPSTICK 0.2 E.U./dL (0.2)
[2021-07-26 15:15] LABS: URINE BILIRUBIN - DIPSTICK SMALL (NEGATIVE); URINE LEUK ESTERASE MODERATE (NEGATIVE); URINE NITRITE - DIPSTICK NEGATIVE (Negative)
[2021-07-26 15:16] LABS: URINE COLOR RED
[2021-07-26 15:18] LABS: URINE RBC TNTC RBC/hpf (0-5)
== END 2021-07-26 18:02 | disposition short-term general hospital (02) ==
LOC: ED 13:19
DX: I85.01 Esophageal varices with bleeding (principal); R18.8 Other ascites; G93.41 Metabolic encephalopathy; E87.1 Hypo-osmolality and hyponatremia; N39.0 Urinary tract infection, site not specified; E72.20 Disorder of urea cycle metabolism, unspecified; C22.9 Malignant neoplasm of liver, not specified as primary or secondary; J44.9 Chronic obstructive pulmonary disease, unspecified; F31.9 Bipolar disorder, unspecified; B19.20 Unspecified viral hepatitis C without hepatic coma; Z20.822 Contact with and (suspected) exposure to COVID-19
CPT/HCPCS: J1956; Q9967; S0164